=== PATIENT | female | born 1950 | race Hispanic/Latino ===

== ENCOUNTER 2017-09-19 07:29 | Day surgery (SDC) | payer OTHER ==
[~2017-09-19] VITALS: Ht 149.9 cm; Wt 61.7 kg
[~2017-09-19 07:29] MED LIST: ALEN70TA47 PO; AMLO5TAB2 PO; LEVO100T12 PO; SODIUM CHLORIDE 0.9% 1000ML 1,000 ML IV ONE
[2017-09-19 08:55] VITALS: BP 145/76
[2017-09-19] MEDS ORDERED: MULT-1203 PO (09:33)
[2017-09-19] MEDS ORDERED: MV-M1TAB20 PO (09:33)
[2017-09-19] MEDS ORDERED: ASPI-555 PO (09:33)
[2017-09-19] MEDS ORDERED: MEPERIDINE-PF 50 MG/ML SYG ONE (09:35)
[2017-09-19] MEDS ORDERED: MIDAZOLAM HCL 1 MG/ML 2ML VIAL ONE ×2 (09:36→09:48)
[2017-09-19 10:02] VITALS: BP 94/48
== END 2017-09-19 11:10 | disposition home or self-care (01) ==
LOC: DAH 07:29
PROVIDERS: ATTEND Internal Medicine Gastroenterology
DX: Z09 Encounter for follow-up examination after completed treatment for conditions other than malignant neoplasm (principal); Z86.010 Personal history of colon polyps; D12.4 Benign neoplasm of descending colon; I10 Essential (primary) hypertension; E03.9 Hypothyroidism, unspecified; Z90.49 Acquired absence of other specified parts of digestive tract; Z79.899 Other long term (current) drug therapy
CPT/HCPCS: 45380; 88305; A4606; J2175; J2250 ×2; J7030